=== PATIENT | male | born 1970 | race Caucasian/White ===

== ENCOUNTER 2020-09-24 19:10 | Emergency (ER) | payer MEDICARE, BC, SELFPAY ==
[2020-09-24 19:16] VITALS: BP 188/106; PULSE 92; RESP 22; TEMP 37.6; O2SAT 97
--- NOTE | 2020-09-24 20:02 | ED.GENADULT ---
HPI - General Adult General Chief complaint: Upper Respiratory Symptoms Stated complaint: thinks sinus infection Time Seen by Provider: 09/24/20 19:25 Source: patient Mode of arrival: Ambulatory Limitations: no limitations History of Present Illness HPI narrative: Patient is a 50-year-old male with chronic sinusitis. He lives hit [facility]. He has a. Visiting the area. For the past week to 10 days he has had left ear pain, sinus congestion, sore throat. He states that he has had sinus infections like this in the past. He is tried his [id number] decongestants and also nasal washes which she states have produced pus like material. Related Data Previous Rx's Medication Instructions Recorded amoxicillin 250 mg PO Q12H 7 Days #14 cap 09/24/20 Allergies Allergy/AdvReac Type Severity Reaction Status Date / Time acetaminophen [From Percocet] Allergy Verified 09/24/20 21:02 hydrocodone [From Vicodin] Allergy Verified 09/24/20 21:02 meperidine Allergy Anaphylaxis Verified 09/24/20 21:02 oxycodone [From Percocet] Allergy Verified 09/24/20 21:02 prednisone Allergy Verified 09/24/20 21:02 propoxyphene [From Darvon] Allergy Verified 09/24/20 21:02 tramadol Allergy Verified 09/24/20 21:02 Review of Systems Constitutional Constitutional: Reports chills and Reports fever(s) ENT Ears, Nose, Mouth, and Throat: Denies vertigo, Denies dizziness, Reports otalgia (Left), Reports post nasal drip, Reports sinus pain, Reports sinus pressure and Reports sore throat Cardiovascular Cardiovascular: Denies dyspnea Respiratory Respiratory: Reports cough, Denies dyspnea and Denies wheezing Integumentary/Breasts Skin/Breast: Denies rash Neurologic Neurologic: Denies behavioral changes, Denies vertigo and Denies dizziness Psychiatric Psychiatric: Denies behavioral changes Hematologic/Lymphatic Hematologic/Lymphatic: Denies easy bleeding and Denies easy bruising Allergic/Immunologic Allergic/Immunologic: Denies urticaria and Denies wheezing Patient History Medical History Chronic sinusitis Social History Smoking Status: Current every day smoker Smoking Status: Current every day smoker alcohol intake frequency: a few times a month Exam Initial Vital Signs Initial Vital Signs: Vital Signs Temperature 99.6 F 09/24/20 19:16 Pulse Rate 92 H 09/24/20 19:16 Respiratory Rate 22 09/24/20 19:16 Blood Pressure 188/106 H 09/24/20 19:16 Pulse Oximetry 97 09/24/20 19:16 Const General: cooperative and comfortable Limitations: mental status not altered HENMT Head: normal to inspection and normocephalic Ears: TM normal on the right, EAC's normal and TM abnormal bulging on the left, dull on the left and with fluid behind the TM on the left Face and sinus: normal facial exam Mouth: oral mucosae normal and lip normal Throat: posterior oropharynx normal Resp Effort & Inspection: normal respiratory effort Auscultation: clear to auscultation bilaterally Skin Lesions: no lesions Rashes: no rashes Extrem General: capillary refill normal Psych Appearance: grossly normal and well kempt Course Orders Ordered: Discontinued Medications Amoxicillin (Amoxicillin 250 Mg Capsule) 250 mg PO NOW ONE Stop: 09/24/20 20:55 Last Admin: 09/24/20 20:59 Dose: 250 mg Documented by: YESSI Vital Signs Vital signs: Vital Signs - 8 hr 09/24/20 19:16 09/24/20 20:52 Temperature 99.6 F Pulse Rate 92 H 88 Respiratory Rate 22 18 Blood Pressure 188/106 H 149/83 H Pulse Oximetry 97 98 Medical Decision Making MDM Narrative Medical decision making narrative: Patient has had 7-10 days of symptoms in his used [id number] decongestants and nasal washes. Has reported purulent-like material. Has a left otitis media. Given his symptoms will start the patient on antibiotics. Was given 1st dose here in the ER. He is given return precautions and follow-up instructions. He expressed understanding and agreement. Discharge Plan Departure Patient Disposition: Home Clinical Impression: Acute infection of sinus, Otitis media Instructions: DI for Sinusitis Activity Restrictions/Additional Instructions: I do recommend that you continue with the decongestants like we discussed. Contact your primary provider for follow-up. Return to the emergency department for any new or worsening symptoms. Prescriptions: New amoxicillin 250 mg capsule 250 mg PO Q12H 7 Days Qty: 14 RF: 0
[2020-09-24 20:52] VITALS: BP 149/83; PULSE 88; RESP 18; O2SAT 98
[2020-09-24] MEDS: AMOXICILLIN 250 MG CAPSULE PO (20:59)
== END 2020-09-24 21:04 | disposition home or self-care (01) ==
PROVIDERS: Emergency Provider Emergency Medicine
DX: J01.90 Acute sinusitis, unspecified (principal); H66.92 Otitis media, unspecified, left ear; R09.81 Nasal congestion; R05 Cough
CPT/HCPCS: 99281; 99283

== ENCOUNTER → 2021-11-25 16:24 | Outpatient (CLI) | payer MEDICARE, BC, SELFPAY | PROVIDERS: Visit Provider Physician Assistant | DX: A54.5 Gonococcal pharyngitis (principal) | CPT/HCPCS: 87491; 87591 ==

== ENCOUNTER → 2021-12-02 17:50 | Outpatient (CLI) | payer MEDICARE, BC, SELFPAY ==
[2021-12-05 05:42] LABS: C.trachomatis RNA Negative (Negative); N.gonorrhoeae RNA Negative (Negative)
== END ==
PROVIDERS: Referring Provider Physician Assistant; Visit Provider Physician Assistant
DX: Z86.19 Personal history of other infectious and parasitic diseases (principal)
CPT/HCPCS: 87491; 87591